=== PATIENT | male | born 1985 | race Hispanic/Latino ===

== ENCOUNTER → 2019-09-27 | Outpatient (CLI) | payer OTHER | END | disposition home or self-care (01) | LOC: RAH 13:56 | PROVIDERS: ATTEND Internal Medicine | DX: M54.42 Lumbago with sciatica, left side (principal) | CPT/HCPCS: 72100 ==

== ENCOUNTER → 2019-11-05 | Outpatient (CLI) | payer OTHER | END | disposition home or self-care (01) | LOC: RAH 07:55 → EEVIPCON 07:55 | PROVIDERS: ATTEND Internal Medicine | DX: N49.2 Inflammatory disorders of scrotum (principal); N50.811 Right testicular pain | CPT/HCPCS: 76870 ==